=== PATIENT | female | born 2000 | race African-American/Black ===

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

== ENCOUNTER 2022-09-15 08:08 | Emergency (ER) | payer OTHER, SELFPAY ==
[2022-09-15 08:21] VITALS: BP 97/56; PULSE 120; RESP 16; TEMP 37.1; O2SAT 98
--- NOTE | 2022-09-15 08:35 | ED.URI ---
HPI - URI/Sore Throat General Chief Complaint: Upper Respiratory Infection Stated Complaint: Body Aches,Cough,Congestion Time Seen by Provider: 09/15/22 08:24 Source: patient Mode of arrival: ambulatory Limitations: no limitations History of Present Illness HPI Narrative: Patient presents today with a 5 day history of cough, body aches, headache, nasal congestion and postnasal drainage. Denies sore throat, fever, nausea or vomiting. 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 Denies any history of asthma, but states she does have some spurring environmental allergies. Related Data Home Medications Medication Instructions Recorded Confirmed norethindrone 1 mg-ethinyl 1 tablet PO DAILY 02/10/21 09/15/22 estradiol 10 mcg (24)-iron 10 mcg(2) tablet (Lo Loestrin Fe) Allergies Allergy/AdvReac Type Severity Reaction Status Date / Time No Known Allergies Allergy Unknown Verified 02/10/21 10:46 Review of Systems Review of Systems: CONSTITUTIONAL: Denies fever, chills, or sweats.+ body aches EYES: Denies visual changes, redness, or discharge. ENT: Denies rhinorrhea, sore throat, or otalgia.+ congestion, postnasal drip CARDIOVASCULAR: Denies chest pain, palpitations, or edema. RESPIRATORY: Denies dyspnea.+ cough GASTROINTESTINAL: Denies abdominal pain, nausea, vomiting, or diarrhea. GENITOURINARY: Denies dysuria or hematuria. SKIN: Denies rash, itching, or wounds. MUSCULOSKELETAL: Denies back pain, joint pain, or myalgia. NEUROLOGIC: Denies numbness, tingling, or weakness.+ headache PSYCH: Denies depression or anxiety. PMFSH Comments At time of signature, I have reviewed and agree with nursing past medical, surgical, social and family history unless otherwise noted. Please see nursing chart for further information. There is no relevant family history pertinent to the presenting complaint Exam Narrative: GENERAL: Mildly ill-appearing, well-nourished, and in no acute distress. HEAD: Normocephalic, atraumatic. EYES: EOMI. No redness or drainage. Conjunctivae normal. ENT: Mucous membranes pink and moist. Nares congested with rhinorrhea. TMs normal bilaterally. Throat normal. Uvula midline. NECK: Normal AROM. Supple. No lymphadenopathy. CHEST: No respiratory distress. Clear to auscultation. HEART: Regular rate and rhythm. No murmur appreciated. EXTREMITIES: Normal range of motion. No edema. SKIN: Warm, dry, no rash. Capillary refill normal. Normal skin turgor. NEURO: No focal deficits. Alert and oriented x3. Gait steady. PSYCH: Normal affect. No signs of depression or anxiety. Course Course Level of Care: Express Care Visit Vital Signs Vital signs: Vital Signs Temperature 98.7 F 09/15/22 08:21 Pulse Rate 120 H 09/15/22 08:21 Respiratory Rate 16 09/15/22 08:21 Blood Pressure 97/56 L 09/15/22 08:21 Pulse Oximetry 98 09/15/22 08:21 Oxygen Delivery Room Air 09/15/22 08:21 Temperature 98.7 F 09/15/22 08:21 Pulse Rate 120 H 09/15/22 08:21 Respiratory Rate 16 09/15/22 08:21 Blood Pressure 97/56 L 09/15/22 08:21 Pulse Oximetry 98 09/15/22 08:21 Oxygen Delivery Room Air 09/15/22 08:21 Reviewed MDM - URI/Sore Throat MDM Narrative Medical decision making narrative: Patient has declined offer to test for influenza. Symptoms consistent with viral URI. No prescription medications indicated at this time. Anticipatory guidance given. Patient is also requesting a work note. Differential Diagnosis Differential diagnosis: Likely upper respiratory infection, sinusitis, viral infection, bronchitis and influenza Critical Care Time Critical Care Time Critical Care Time: No Discharge Plan Discharge Clinical Impression: Upper respiratory infection Qualifiers: URI type: unspecified URI Qualified Code(s): J06.9 - Acute upper respir
== END 2022-09-15 08:44 | disposition home or self-care (01) ==
PROVIDERS: Emergency Provider Nurse Practitioner
DX: J06.9 Acute upper respiratory infection, unspecified (principal)
CPT/HCPCS: 99211; G0463

== ENCOUNTER 2023-09-12 10:07 | Emergency (ER) | payer OTHER, SELFPAY ==
[2023-09-12 10:36] VITALS: BP 113/67; PULSE 63; RESP 14; TEMP 36.2; O2SAT 100
--- NOTE | 2023-09-12 10:40 | ED.URI ---
HPI - URI/Sore Throat General Chief Complaint: Upper Respiratory Infection Stated Complaint: sorethroat Time Seen by Provider: 09/12/23 10:56 Source: patient and RN notes reviewed Mode of arrival: ambulatory Limitations: no limitations History of Present Illness HPI Narrative: 23-year-old female presents concern for 2 day history of nasal congestion, rhinorrhea, postnasal drainage, sore throat. She denies fever, body aches, chills, sweats. Reports he has been taking DayQuil. MD elicited complaint: sore throat and nasal congestion Related Data Home Medications Medication Instructions Recorded Confirmed norethindrone 1 mg-ethinyl tablet 09/12/23 09/12/23 estradiol 20 mcg (21)-iron 75 mg (7) tablet (Blisovi Fe 06/25 (28)) Allergies Allergy/AdvReac Type Severity Reaction Status Date / Time No Known Allergies Allergy Unknown Verified 09/12/23 10:45 Review of Systems Review of Systems: CONSTITUTIONAL: Denies malaise, chills, sweats, or fever. EYES: Denies visual changes, redness, or discharge. ENT: Reports rhinorrhea, congestion, and sore throat. CARDIOVASCULAR: Denies chest pain, palpitations, or edema. RESPIRATORY: Denies cough. Denies dyspnea. GASTROINTESTINAL: Denies abdominal pain, nausea, vomiting, diarrhea SKIN: Denies rash or itching. MUSCULOSKELETAL: Denies myalgia. NEUROLOGIC: Denies headache. All systems reviewed & are unremarkable except as noted in HPI and below PMFSH Comments At time of signature, agree with nursing past medical, surgical, social and family history. There is no relevant family history pertinent to the presenting complaint Exam Narrative: GENERAL: Well-appearing, well-nourished, and in no acute distress. HEAD: Normocephalic EYES: PERRLA, conjunctivae clear ENT: Nares clear, turbinates edematous and erythematous, clear discharge. Mucous membranes moist. TM pearly andrea with dull light reflex bilaterally; no tragal tenderness. Oropharynx not erythematous without lesions. Tonsils not enlarged and without exudate, no drooling, no hoarseness, no trismus, uvula midline. NECK: Supple. No lymphadenopathy CHEST: Clear to auscultation, breath sounds equal. No wheezing, rhonchi, rales, or stridor. No respiratory distress, speaks in full sentences. HEART: Regular rate and rhythm. No murmur heard. SKIN: Warm, dry, no rash. NEURO: Alert and oriented x3. PSYCH: Normal mood and affect Course Course Emergency Course: Patient is aware of diagnosis, understands and agrees to treatment plan. Anticipatory guidance given. Patient agrees to follow-up as directed and is aware of reasons to seek care at the emergency department. Portions of this record may have been created with voice recognition software Level of Care: Express Care Visit Vital Signs Vital signs: Vital Signs Temperature 97.1 F L 09/12/23 10:36 Pulse Rate 63 09/12/23 10:36 Respiratory Rate 14 09/12/23 10:36 Blood Pressure 113/67 09/12/23 10:36 Pulse Oximetry 100 09/12/23 10:36 Oxygen Delivery Room Air 09/12/23 10:36 Temperature 97.1 F L 09/12/23 10:36 Pulse Rate 63 09/12/23 10:36 Respiratory Rate 14 09/12/23 10:36 Blood Pressure 113/67 09/12/23 10:36 Pulse Oximetry 100 09/12/23 10:36 Oxygen Delivery Room Air 09/12/23 10:36 Reviewed. MDM - URI/Sore Throat MDM Narrative Medical decision making narrative: Differential diagnosis considered: Elkins virus, strep pharyngitis, allergic rhinitis, upper respiratory tract infection, sinusitis, rhinosinusitis, nasopharyngitis. viral pharyngitis, otitis media, otitis externa, pneumonia, bronchitis, viral cough syndrome, viral syndrome, and influenza. Exam findings show no acute concerns or changes; patient is non-toxic appearing and is in no distress. Patient is appropriate for outpatient treatment and follow-up. Lab Data Attestation: I reviewed the patient's lab results. Critical Care Time Critical Care Time Critical Care Time: No
== END 2023-09-12 11:06 | disposition home or self-care (01) ==
PROVIDERS: Emergency Provider Nurse Practitioner
DX: J06.9 Acute upper respiratory infection, unspecified (principal)
CPT/HCPCS: 87081; 87880; 99213; G0463

== ENCOUNTER 2023-12-23 08:44 | Emergency (ER) | payer OTHER, SELFPAY ==
--- NOTE | 2023-12-23 08:48 | ED.URI ---
HPI - URI/Sore Throat General Chief Complaint: Upper Respiratory Infection Stated Complaint: sorethroat Time Seen by Provider: 12/23/23 08:48 Source: patient Mode of arrival: ambulatory Limitations: no limitations History of Present Illness HPI Narrative: Chery is a 23-year-old female who presents with a 1 day history of sore throat and body aches. 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 She states she tested negative for COVID on Tuesday. She has been taking ibuprofen for the body aches with partial relief. She denies any fevers, chills, cough, congestion, otalgia, shortness of breath, or chest pain. MD elicited complaint: sore throat and other (body aches) Related Data Home Medications Medication Instructions Recorded Confirmed norethindrone 1 mg-ethinyl 1 tablet DAILY 09/12/23 12/23/23 estradiol 20 mcg (21)-iron 75 mg (7) tablet (Blisovi Fe 06/25 (28)) Allergies Allergy/AdvReac Type Severity Reaction Status Date / Time No Known Allergies Allergy Unknown Verified 09/12/23 10:45 Review of Systems Review of Systems: Pertinent positives per HPI. Patient denies any fever, chills, rash, visual changes, dizziness, cough, shortness of breath, chest pain, palpitations, nausea, vomiting, diarrhea, constipation, abdominal pain, or any urinary issues. PMFSH Comments At the time of my signature, I reviewed and agree with the nursing past medical, surgical, social, and family history. There is no relevant family history pertinent to the patient complaint. Exam Narrative: General: Well-developed, well nourished, in no apparent distress Head: Normocephalic, atraumatic Eyes: Pupils equally round, EOM intact, sclera and conjunctive clear, no discharge, lids normal Ears: TMs intact and clear, ear canals erythematous, no drainage, hearing normal. Nose: Nares patent, no discharge, left nare appeared congested/inflamed, no sinus tenderness. Mouth: Oral pharynx without lesions, masses, or exudates, good dentition, MMM. Neck: Supple, trachea midline Cardio: Regular rate and rhythm, s1 and s2 normal, no murmur appreciated. Resp: Clear to auscultation bilaterally, no rhonchi, rales, wheezing or rubs Course Course Emergency Course: Portions of this record may have been created with voice recognition software. Level of Care: Express Care Visit Vital Signs Vital signs: Vital signs reviewed MDM - URI/Sore Throat MDM Narrative Medical decision making narrative: At the time of visit patient is resting comfortably on the exam table. Patient appears to be nontoxic. Labs: Strep test was obtained and negative in the clinic today. COVID and influenza testing was also performed and negative in the clinic today. We will send strep for culture. Plan: I suspect patient has pharyngitis. Supportive measures were discussed with the patient and they voiced understanding discharge instructions and agrees to treatment plan. Return precautions reviewed Differential Diagnosis Differential diagnosis: Likely upper respiratory infection, otitis media, sinusitis, viral infection, influenza, pharyngitis and other (COVID) Discharge Plan Discharge Clinical Impression: Pharyngitis Patient Disposition: Home, Self-Care Condition: Stable Instructions: Antibiotic Form, Pharyngitis (ED) Additional Instructions: Strep test was negative in the clinic today. We will send for culture if this comes back positive we will contact you in place you on antibiotics at time COVID and influenza testing was negative in the clinic today. Increase fluids and stay well hydrated Tylenol/motrin for pain/fever Flonase and OTC antihistamines as directed Vicks vapor rub to open sinuses Sinus rinses for congestion Cepacol spray, cough drops, throat lozenges, warm tea with honey/lemon, gargle salt water to soothe throat BRAT diet for diarrhea Clear liquids x 24 hours then advance as tolerated
[2023-12-23 08:59] VITALS: BP 116/58; PULSE 110; RESP 18; TEMP 36.7; O2SAT 98
[2023-12-23 09:09] VITALS: BP 116/58; PULSE 110; RESP 18; TEMP 36.7; O2SAT 98
[2023-12-23 09:14] LABS: EDSTREPNEGPOS1 Presumptive Negative
[2023-12-23 09:44] LABS: EDINFLUASCREEN Negative; EDINFLUBSCREEN Negative
== END 2023-12-23 09:43 | disposition home or self-care (01) ==
PROVIDERS: Emergency Provider Nurse Practitioner Family
DX: J02.9 Acute pharyngitis, unspecified (principal); Z20.822 Contact with and (suspected) exposure to COVID-19
CPT/HCPCS: 87081; 87426; 87804; 87880; 99213; G0463

== ENCOUNTER 2024-03-04 04:55 | Emergency (ER) | payer OTHER, SELFPAY ==
[2024-03-04 05:00] VITALS: BP 117/78; PULSE 89; RESP 14; TEMP 36.2; O2SAT 100
--- NOTE | 2024-03-04 06:34 | PC.NURSE ---
Patient walked up to triage area and advised that she was leaving. Patient had a steady gait upon leaving ED.
== END 2024-03-04 06:56 | disposition left against medical advice (07) ==
DX: Z53.21 Procedure and treatment not carried out due to patient leaving prior to being seen by health care provider (principal)
CPT/HCPCS: 99199

== ENCOUNTER 2025-03-05 16:48 | Emergency (ER) | payer OTHER, SELFPAY ==
--- NOTE | ~2025-03-05 | US_ITS ---
EXAMINATION: US OB <=14 wk fetus w TV DATE: 03/05/2025 19:08 INDICATION: Abdominal cramping and vaginal bleeding TECHNIQUE: Real-time pelvic ultrasound utilizing both a transvaginal and transabdominal probe was performed. The interpreting radiologist was not present for the study. COMPARISON: None. FINDINGS: The uterus measures 9.6 x 4.7 x 4.8 cm. 4 mm anechoic nabothian cyst at the cervix. The endometrial complex is thickened measuring 2.0 cm in thickness. No evident intrauterine gestational sac. The right ovary measures 3.3 x 3.0 x 3.2 cm. 2.4 cm thick-walled centrally hypoechoic likely corpus luteum cyst in the right ovary. The left ovary measures 2.0 x 1.9 x 1.7 cm. Mass or flow identified at both ovaries on color Doppler. There is very small amount of anechoic free fluid at the bilateral adnexa. IMPRESSION: 1. Thickened endometrial complex measuring 2.0 cm in thickness with no evident intrauterine gestational sac for which differential would include early , failed or ectopic . Recommend follow-up with serial beta-hCG levels and repeat ultrasound as clinically indicated. Reviewed, dictated and finalized at location A. IMPRESSION: 1. Thickened endometrial complex measuring 2.0 cm in thickness with no evident intrauterine gestational sac for which differential would include early pregnan cy, failed or ectopic . Recommend follow-up with serial beta -hCG levels and repeat ultrasound as clinically indicated.
--- OUTSIDE RECORDS SUMMARY | 2025-03-05 16:51 | XMS_ITS | Clinical Summary ---
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 Gender Identity Not on file Sexual Orientation Not on file Last Filed Vital Signs Vital Sign Reading Time Taken Comments Blood Pressure 118/62 03/04/2024 2:35 PM CDT Pulse 78 03/04/2024 2:35 PM CDT Temperature 36.3 C (97.4 F) 03/04/2024 2:35 PM CDT Respiratory Rate 16 03/04/2024 2:35 PM CDT Oxygen Saturation 98% 03/04/2024 2:35 PM CDT Inhaled Oxygen Concentration - - Weight 68 kg (150 lb) 03/04/2024 7:12 AM CDT Height 167.6 cm (5' 6) 03/04/2024 7:12 AM CDT Body Mass Index 24.21 03/04/2024 7:12 AM CDT Plan of Treatment Health Maintenance Due Date Last Done Comments Cervical Cancer Screening Pap Smear (Age 21 to 29) Every 3 Years 2002 Cervical Cancer Screening 2002 Annual Physical 2005 HPV Vaccines (1 - 3-dose series) 2017 Meningococcal B Vaccine (1 of 2 - Standard) 2018 Hepatitis C 2020 DTaP, Tdap and Td Vaccines (7 - Td or Tdap) 01/16/2024 01/15/2014, 12/26/2007, 02/03/2004, Additional history exists COVID-19 Vaccine (2023- season) 2025 Hepatitis B Vaccines Completed 01/07/2003, 2002, 2002 Pneumococcal Vaccine: Pediatrics (0 to 5 Years) and At-Risk Patients (6 to 49 Years) Aged Out 02/03/2004, 2002 No longer eligibl e based on patient's age to complete this topic Meningococcal Vaccine Completed 04/11/2020, 014 RSV Immunizations Under 20 Months Aged Out No longer eligible based on patient's age to complete this topic Insurance Care Teams Rag Cutting Machine Tender Relationship Specialty Start Date End Date None, Provider, PCP - General UNKNOWN PHYSICIAN SPECIALTY 03/04/24
--- OUTSIDE RECORDS SUMMARY | 2025-03-05 16:51 | XMS_ITS | Data Portability ---
Author Organization [place] [facility], Main Office Address [address] [place] [address] Care Team Providers Care Talent Acquisition Lead Name Role Phone DARLINE JOSE Primary Care Provider DARLINE JOSE Referring Provider Assessment No assessment recorded. Plan of Treatment Reminders Order Date Submit Date Provider Last Modified By Organization Details Last Modified Time Details Appointments Follow Up 15 2024 04:30P M Katherine Luis, PMHNP Not available Not available Not available Lab None recorded. Referral psychiatr ist referral - Please call patient to schedule an appointme nt. Thank you. 2024 025 [facility], [address] [facility], [address], [place], [address], 12/31/2024 14:13:20 psychiatr ist referral - Requests ADD evaluatio n, no childhood dx or tx. [address], [address] [facility], [place], [address], 11/11/2022 16:44:05 Procedures None recorded. Surgeries None recorded. Imaging None recorded. Medication Orders None recorded. Patient TargetsNo targets recorded. Patient InstructionsNo instructions recorded. Reason for Referral Psychiatrist Referral for Po or concentration Requests ADD evaluation, no childhood dx or tx. Referring Physician: Francisco Nunn Family Medicine, Encounter Date: 10/06/2022 Psychiatrist Referral for Po or concentration Please call patient to schedule an appointment. Thank you. Referring Physician: Darline Jose Family Medicine, Encounter Date: 12/28/2024 Results Created Date Observation Date Name Description Value Unit Range Abnormal Flag Note LastModifiedBy Organization Detail LastModifiedTime 12/12/19 21 12/11/2020 PPD (lainey fied prote in deriv ative ), skin test TB negati ve Not Available [facility] [address] , [place], [address], 12/09/2020 14:42:12 Result Notes None recorded. Problems Name Problem SNOMED Code Status Onset Date Resolution Date Notes Provider Name and Address Organization Details Recorded Time Poor concentration 28722982 Active 2022 Francisco Nunn, FOOD MANAGEMENT AIDE [address] [facility], [address], [place], [address], [employer] 3 14:10:45 Chronic constipation 664620236 Active 2024 Darline Jose FOOD MANAGEMENT AIDE [address] [facility], [address], [place], [address], [employer] 5 15:06:02 Problem Notes None recorded. Procedures Surgical History Date Name Laterality Status Provider Name and Address Organization Details Recorded Time extraction of wisdom tooth completed Karen Carr RN [employer] 12/28/2024 14:45:05 Imaging Results None recorded. Procedure Notes None recorded. Medical Equipment None Reported. Allergies No known drug allergies Medications Name Sig Start Date Stop Date Status Note LastModified by Organization Details LastModified Time amoxicillin 500 mg capsule 10/06 completed Not Available Not Available Not Available metronidazo le 0.75 % (37.5 mg/5 gram) vaginal gel Insert 1 applicato rful every day by vaginal route at bedtime for 5 days. 10/06 completed Not Available Not Available Not Available Tubersol 5 tub. unit/0.1 mL intradermal injection solution Inject 0.1 mL every day by intraderm al route for 1 day. 12/28 completed Not Available Not Available Not Available amoxicillin 875 mg tablet Take 1 tablet every 12 hours by oral route for 10 days. 10/06 completed Not Available Not Available Not Available fluticasone propionate 50 mcg/actuati on nasal spray,suspe nsion 12/28 completed Not Available Not Available Not Available atomoxetine 18 mg capsule TAKE 1 CAPSULE BY MOUTH EVERY DAY active Not Available Not Available No t Available Lo Loestrin Fe 1 mg-10 mcg (24)/10 mcg (2) tablet TAKE 1 TABLET BY MOUTH EVERY DAY 10/06 completed Not Available Not Available Not Available Aurovela Fe 1-20 (28) 1 mg-20 mcg (21)/75 mg (7) tablet TAKE 1 TABLET BY MOUTH EVERY DAY active Not Available Not Available No t Available Vitals Date Recorded Body height Body mass index (BMI) Body mass index (BMI) [Percentile] Per age and sex Body weight Body temperature Heart rate Oxygen saturation Oxygen saturation in Arterial blood by Pulse oximetry Systolic And Diastolic Provider Name and Address Organization Details Last Updated DateTime 3 167.64 cm 23.2 kg/m2 65 % 24802.3 g 97.1 [degF] 85 /min 99 % 99 % 118/84 mm[Hg] Angella Robertson RN [facility] [employer] 3 13:58:20 Date Recorded Body mass index (BMI) Body height Oxygen saturation Oxygen saturation in Arterial blood by Pulse oximetry Heart rate Body temperature Body weight Systolic And Diastolic Provider Name and Address Organization Details Last Updated DateTime 1 22.4 kg/m2 167.64 cm 97 % 97 % 83 /min 98.2 [degF] 96561.3 4 g 126/88 mm[Hg] Not Available [employer] 3 21:49:07 Date Recorded Body weight Body mass index (BMI) Body height Body temperature Heart rate Respiratory rate Oxygen saturation Oxygen saturation in Arterial blood by Pulse oximetry Pain severity - 0-10 verbal numeric rating [Score] - Reported Systolic And Diastolic Provider Name and Address Organization Details Last Updated DateTime 5 60819.7 4 g 25.6 kg/m2 167.64 cm 97.3 [degF] 86 /min 20 /min 98 % 98 % 0 100/70 mm[Hg] Karen Carr RN [facility] [employer] 5 14:47:06 Date Recorded Body mass index (BMI) Body height Oxygen saturation Oxygen saturation in Arterial blood by Pulse oximetry Heart rate Body temperature Body weight Systolic And Diastolic Provider Name and Address Organization Details Last Updated DateTime 2 22.3 kg/m2 167.64 cm 98 % 98 % 76 /min 96.1 [degF] 78086.7 5 g 110/62 mm[Hg] Not Available [facility] 21:49:07 Social History Question Answer Notes LastModified by Organizat ion Details LastModified Time Tobacco Smoking Status Never Smoker Not Available [facility] 08/04/2022 21:48:51 What Is Your Level Of Caffeine Consumption? Heavy Information not available 12/28/2024 How Much Tobacco Do You Chew? None [id number] Information not available 08/04/2022 In The 14 Days Before Symptom Onset, Have You Had Close Contact With A Laboratory-confi rmed COVID-19 While That Case Was Ill? No [id number] Information not available 08/04/2022 In The 14 Days Before Symptom Onset, Have You Had Close Contact With A Person Who Is Under Investigation For COVID-19 While That Person Was Ill? No [id number] Information not available 08/04/2022 What Type Of Diet Are You Following? REGULAR [id number] Information not available 08/04/2022 Which Illicit Or Recreational Drugs Have You Used? No [id number] Information not available 08/04/2022 Have There Been Any Changes To Your Family Or Social Situation? Yes Moving And Engaged Information not available 12/28/2024 Are There Any Guns Present In Your Home? No [id number] Information not available 08/04/2022 Where Do You Live? [place] Information not available 12/28/2024 How Many Children Do You Have? 0 Information not available 12/28/2024 Do You Have Any Pets? Yes Information not available 12/28/2024 Do You Use Protection During Sex? No Information not available 12/28/2024 Do You Use Your Seat Belt Or Car Seat Routinely? Yes Information not available 10/06/2022 Are You Sexually Active? Yes Information not available 12/28/2024 Do You Have Smoke And Carbon Monoxide Detectors In Your Home? Yes Information not available 12/28/2024 Are You Passively Exposed To Smoke? Yes [id number] Information not available 08/04/2022 Are There Any Smokers In Your House? Yes Information not available 12/28/2024 Do You Participate In Social Media? Yes Information not available 10/06/2022 Do You Use Sunscreen Routinely? Yes [id number] Information not available 08/04/2022 Have You Recently Traveled Abroad? No Information not available 12/28/2024 Are You Currently In School? Yes Information not available 12/28/2024 How Many Years Have You Used E-cigarettes Or Vape? 2 Information not available 12/28/2024 Sex: Unknown Functional Status Question Answer Note LastModified by Organizat ion Details LastModified Time What is your level of alcohol consumption? Occasional [id number] Information not available 08/04/2022 Do you or have you ever used smokeless tobacco? 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 Current user of electronic cigarettes [id number] Information not available 08/04/2022 What is your exercise level? Occasional [id number] Information not available 08/04/2022 Mental Status Question Answer Note LastModified by Organization D etails LastModified Time Do you feel stressed (tense, restless, nervous, or anxious, or unable to sleep at night)? [id number] Information not available 10/06/2022 Family History Relationship Description Onset Age of this Age Resolved Age Notes LastModified by Organization Details LastModified Time Father Essential hypertension Not available 14:44:39 Mother Essential hypertension Not available 14:44:39 Medical History Condition Response CONSTIPATION Y Gynecological History Statement/Question Response Flow Moderate Frequency of Cycle (Q days) 28 Date of LMP 12/28/2024 Sexually Active? Y Menses Monthly Y Duration of Flow (days) 5 Current Control Method Age at Menarche 15 Obstetrics History GPAL:G 0 P 0 0 0 0 Type Value Living 0 Total 0 Past Encounters Encounter ID Performer Location Encounter Start Date Encounter Closed Date Diagnosis/Indication Diagnosis SNOMED-CT Code Diagnosis ICD10 Code Diagnosis IMO Codes Diagnosis Note [id number] Sherri Sanders MD [facility] Primary Care [address] [place] [address] 12/09/2020 00:00:00 12/09/2020 17:31:59 [id number] NOE Cabrera [facility] Primary Care [address] [place] [address] 03/26/2022 00:00:00 03/26/2022 08:42:48 [id number] Sherri Sanders MD [facility] Care [address] [place] [address] 10/06/2022 13:52:40 10/06/2022 14:22:40 Adult health examination 295112500 Z00.00 Z13.29 Z13.220 Z13.89 Z13.1 Z00.01 Adult Health Exam--Plan for routine labs at 23yo.--Josr mogram at 42yo--Wood n screening at 47yo--Bone Density at 65yo--PAP/ WWE-recomm ended at 23yo.--Tda p recommende d q 10 years-up to date--Flu recommende d yearly---C OVID-19 recommende d--Encoura ged yearly dental, vision, hearing screenings Poor concentration 52909 005 R41.840 New problemPt has no known dx or tx history for ADD/ADHDWi ll refer to psychiatry for formal evaluation /dx. [id number] Humza Noel MD [facility] Family Practice [address] [address] 12/28/2024 14:23:27 01/01/2025 14:02:24 Physical examination 5157532 Z00.00 [id number] [facility] maint[facility]anc e reviewedDi scussed diet and exercisePa tient questions answered Poor concentration 75438 005 R41.840 Believes she may have ADHD, would like assessment Chronic constipation 236 602169 K59.09 129040 Elin samples given in office 145 mg [id number] Katherine Orozcodavid, H[facility] [address] [facility] [address] [place] [address] 02/14/2025 16:06:36 02/14/2025 17:21:24 Health Concerns Section Related Observation LastModified by Organization Detai ls LastModified Time None Recorded Concern Status LastModified by Organization Details LastModified Time None Recorded Advance Directives Directive None Recorded Payers Insurance Date Sequence Insurance Name Policy Number Policy Sanchez Covered Member ID Sanchez Member ID Guarantor Name 02/11/2025 1 [facility] [id number] Chery Jackman [id number] Chery Jackman 01/22/2025 1 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 Pt in office for annual well visit/physical.2. Pt states she believes she might have ADD/ADHD. States she always struggled to focus, especially if it was something that she wasn't interested in. States she gets overwhelmed easily. Reports one of her teachers in high school thought she did. All of her co-workers also think she might have ADD. CANDELARIO Tavera [address] [facility], [facility] [address], [place], [address], [employer] 10/06/2022 14:20:18 12/28/2024 text/html Chery Jackman 24 year old female patient here today to establish care. She previously saw Francisco Nunn. She has concerns with possible ADHD. Would like to assessment. Does take oral control Flu shot: declinesCOVID vaccines: declinesTdap: 12/28/24PAP: 2024Mammogram and colonoscopy not indicated CANDELARIO Rivera [address] [facility], [facility] [address], [place], [address], [employer] 12/28/2024 15:08:24 OBGyn Episode No OBEpisode recorded.
[2025-03-05 17:00] VITALS: BP 139/74; PULSE 76; RESP 16; TEMP 37; O2SAT 100
--- NOTE | 2025-03-05 17:40 | ED_ITS ---
HPI - General Chief complaint: Vaginal Bleeding <Rachelle Fletcher APRN - Last Filed: 03/05/25 19:14> Stated complaint: poss miscarriage, est 5-6 wks preg <Rachelle Fletcher APRN - Last Filed: 03/05/25 19:14> Time Seen by Provider: 03/05/25 17:41 <Rachelle Fletcher APRN - Last Filed: 03/05/25 19:14> Focused HPI: Patient is a 24-year-old female presents to the ER with concerns of vaginal bleeding that started around 3:00 p.m. this afternoon. Patient reports she is 5-6 weeks . She denies passing any clots. Patient reports her last menstrual period was January 28, 2025. She endorses increased frequency of urination, but denies burning and urgency. Patient denies any recent fevers, acute back pain, or previous pregnancies. She endorses lower abdominal cramping. Patient endorses a history of ADHD but denies any other medical history relevant to this ER visit. GENERAL: Well-appearing, well-nourished, and in no acute distress. HEAD: Normocephalic, atraumatic. CHEST: Clear to auscultation. ?No respiratory distress. HEART: Regular rate and rhythm.? NEURO: ?Alert and oriented x3. Patient screened in triage and initial orders placed.? ?Additional care and disposition to be based upon?diagnostic testing and treatment. <Rachelle Fletcher APRN - Last Filed: 03/05/25 19:14> History of Present Illness HPI Narrative: Agree with HPI <Jorje Pompa MD - Last Filed: 03/05/25 22:35> Related Data Home medications: Home Medications ?Medication ?Instructions ?Recorded ?Confirmed ?Last Taken ?Type norethindrone 1 mg-ethinyl 1 tablet DAILY 09/12/23 Unknown History estradiol 20 mcg (21)-iron 75 mg (7) tablet ([place] Fe 06/25 (28)) <Rachelle Fletcher APRN - Last Filed: 03/05/25 19:14> Allergies/Adverse reactions: Allergies Allergy/AdvReac Type Severity Reaction Status Date / Time No Known Allergies Allergy Unknown Verified 03/05/25 17:00 <Rachelle Fletcher APRN - Last Filed: 03/05/25 19:14> Review of Systems 2 Review of Systems: Gen.: Denies fevers or chills Eyes: Denies eye pain or visual change ENT: Denies congestion Respiratory: Denies shortness of breath or cough CV: Denies chest pain or palpitations GI: Denies abdominal pain nausea, emesis or diarrhea denies burning, urgency, frequency or hematuria Musculoskeletal: Denies back pain or muscle pain Neuro: Denies numbness, tingling, weakness or focal weakness Skin: Denies rash Except as documented, all other systems reviewed and negative <Jorje Pompa MD - Last Filed: 03/05/25 22:35> Exam 2 Narrative: APPEARANCE: No acute distress, nontoxic, resting in bed EYES: EOMI HEENT: Normocephalic, atraumatic, OMM RESPIRATORY: No respiratory distress Clear to auscultation bilaterally with no rhonchi wheezing or rales. CARDIOVASCULAR: Regular rate and rhythm without murmurs rubs or gallops. ABDOMINAL: Soft, nontender, nondistended, no rebound or guarding MUSCULOSKELETAl: Moves all extremities. No clubbing, cyanosis or edema. NEURO: Awake and alert. Following commands, speech normal, no focal deficits SKIN:: Warm, dry. No rashes lesions or abrasions PSYCHIATRIC: Normal affect/mood, <Jorje Pompa MD - Last Filed: 03/05/25 22:35> Course Vital Signs Vital signs: Vital Signs Temperature 98.6 F 03/05/25 17:00 Pulse Rate 76 03/05/25 17:00 Respiratory Rate 16 03/05/25 17:00 Blood Pressure 139/74 03/05/25 17:00 Pulse Oximetry 100 03/05/25 17:00 Oxygen Delivery Room Air 03/05/25 17:00 Temperature 98.6 F 03/05/25 17:00 Pulse Rate 70 03/05/25 20:37 Respiratory Rate 16 03/05/25 20:37 Blood Pressure 131/66 03/05/25 20:37 Pulse Oximetry 100 03/05/25 20:37 Oxygen Delivery Room Air 03/05/25 17:00 <Rachelle Fletcher APRN - Last Filed: 03/05/25 19:14> Vital Signs Temperature 98.6 F 03/05/25 17:00 Pulse Rate 76 03/05/25 17:00 Respiratory Rate 16 03/05/25 17:00 Blood Pressure 139/74 03/05/25 17:00 Pulse Oximetry 100 03/05/25 17:00 Oxygen Delivery Room Air 03/05/25 17:00 Temperature 98.6 F 03/05/25 17:00 Pulse Rate 70 03/05/25 20:37 Respiratory Rate 16 03/05/25 20:37 Blood Pressure 131/66 03/05/25 20:37 Pulse Oximetry 100 03/05/25 20:37 Oxygen Delivery Room Air 03/05/25 17:00 <Jorje Pompa MD - Last Filed: 03/05/25 22:35> MDM - OB/Uterine Contractions MDM Narrative Medical decision making narrative: 24-year-old female approximately 4 weeks by menstrual period presenting for vaginal bleeding. On initial evaluation patient was in no acute distress, afebrile, hemodynamically stable. Abdomen was soft and nontender. She had mild anemia with hemoglobin 11.4. Mild leukocytosis at 11.4. CMP without significant abnormalities. Beta-hCG elevated 2687. UA consistent with bacteriuria. Pelvic ultrasound was obtained which showed no evidence of intrauterine gestational sac which could consistent early , ectopic , failed . Discussed this with the patient and partner at bedside, advised them to follow up the patient's sub prior tomorrow to have HCG redrawn on patient and family were agreeable to this plan. Given strict return precautions. < Jorje Pompa MD - Last Filed: 03/05/25 22:35> Differential Diagnosis Differential diagnosis: Likely other (threatened miscarriage, ectopic ,) <Jorje Pompa MD - Last Filed: 03/05/25 22:35> Medical Records Attestation: I reviewed the patient's medical records. <Jorje Pompa MD - Last Filed: 03/05/25 22:35> Lab Data Attestation: I reviewed the patient's lab results. <Jorje Pompa MD - Last Filed: 03/05/25 22:35> Result diagrams: 03/05/25 17:40 03/05/25 17:40 <Rachelle L. Chance, SUPPORTIVE EMPLOYMENT CASE MANAGER - Last Filed: 03/05/25 19:14> Labs: Lab Results 03/05/25 03/05/25 Range/Units 17:40 19:03 WBC 11.4 H (4.5-10.0) K/mm3 RBC 4.02 L (4.2-5.4) M/mm3 Hgb 11.4 L (12.0-15.0) g/dL Hct 34.9 L (37.0-47.0) % MCV 86.8 (80-100) fl MCH 28.4 (26-34) pg MCHC 32.7 (32-36) g/dl RDW 12.9 (11.5-14.5) % Plt Count 251 (150-375) k/mm3 MPV 10.8 H (7.4-10.4) fl Immature Gran % (Auto) 0.3 (0-0.5) % Neut % (Auto) 76.7 H (45.5-73.1) % Lymph % (Auto) 17.1 L (18.3-44.2) % Rains % (Auto) 5.3 (2.6-8.5) % Eos % (Auto) 0.2 (0-4.4) % Baso % (Auto) 0.4 (0.2-1.2) % Lymph # (Auto) 1.94 (0.9-3.2) K/mm3 Rains # (Auto) 0.6 (0.1-0.6) K/mm3 Eos # (Auto) 0.0 (0-0.3) K/mm3 Baso # (Auto) 0.1 (0.0-0.1) K/mm3 Abs Immat Gran (auto) 0.03 (0.00-0.031) K/mm3 Absolute Neuts (auto) 8.7 H (1.3-6.7) K/mm3 Absolute Nucleated RBC 0.000 (0.0-0.012) K/mm3 Nucleated RBC % 0.0 (0.0-0.2) % PT 14.0 (11.1-14.7) Seconds INR 1.1 APTT 27.5 (22.3-36.8) Seconds Sodium 135 L (137-145) mmol/L Potassium 3.6 (3.4-5.0) mmol/L Chloride 103 (98-107) mmol/L Carbon Dioxide 22 (22-30) mmol/L Anion Gap 10 (4-12) mmol/L BUN 11 (7-17) mg/dL Creatinine 0.80 (0.7-1.0) mg/dL Estim Creat Clear Calc 90 ml/min Estimated GFR > 60 (59 - ) Glucose 84 (65-110) mg/dL Calcium 8.8 (8.4-10.2) mg/dL Total Bilirubin 0.9 (0.2-1.3) mg/dL AST 21 (14-36) U/L ALT 15 (6-35) U/L Alkaline Phosphatase 56 (38-126) U/L Total Protein 7.9 (6.3-8.2) g/dL Albumin 4.7 (3.5-5.1) g/dL Beta HCG, Quant 2687.80 mIU/ML Urine Color Yellow (Yellow) Urine Appearance Cloudy H (Clear) Urine pH 6.0 (5.0-9.0) Ur Specific [facility] 1.015 (1.001-1.035) Urine Protein Negative (Negative) mg/dL Urine Glucose (UA) Negative (Negative) mg/dL Urine Ketones 2+ H (Negative) mg/dL Ur Blood (Man) 3+ H (Negative) Urine Nitrate Negative (Negative) Urine Bilirubin Negative (Negative) Urine Urobilinogen 0.2 (<2.0) mg/dL Leukocyte Esterase Rfl 1+ H (Negative) KELSEY/UL Urine RBC 3-5 H (0-2) /hpf Urine WBC 6-10 H (0-3) /hpf Ur Squamous Epith Cells Few (Few) /hpf Urine Bacteria Rare /hpf Urine Casts 0-2 Blood Type A Positive Antibody Screen Negative Screen Not Reportable Baby's Blood Type Not Reportable Baby's ZULEIMA Not Reportable Doses of RhIg Required 0 <Rachelle Fletcher, SUPPORTIVE EMPLOYMENT CASE MANAGER - Last Filed: 03/05/25 19:14> Lab Results 03/05/25 03/05/25 Range/Units 17:40 19:03 WBC 11.4 H (4.5-10.0) K/mm3 RBC 4.02 L (4.2-5.4) M/mm3 Hgb 11.4 L (12.0-15.0) g/dL Hct 34.9 L (37.0-47.0) % MCV 86.8 (80-100) fl MCH 28.4 (26-34) pg MCHC 32.7 (32-36) g/dl RDW 12.9 (11.5-14.5) % Plt Count 251 (150-375) k/mm3 MPV 10.8 H (7.4-10.4) fl Immature Gran % (Auto) 0.3 (0-0.5) % Neut % (Auto) 76.7 H (45.5-73.1) % Lymph % (Auto) 17.1 L (18.3-44.2) % Rains % (Auto) 5.3 (2.6-8.5) % Eos % (Auto) 0.2 (0-4.4) % Baso % (Auto) 0.4 (0.2-1.2) % Lymph # (Auto) 1.94 (0.9-3.2) K/mm3 Rains # (Auto) 0.6 (0.1-0.6) K/mm3 Eos # (Auto) 0.0 (0-0.3) K/mm3 Baso # (Auto) 0.1 (0.0-0.1) K/mm3 Abs Immat Gran (auto) 0.03 (0.00-0.031) K/mm3 Absolute Neuts (auto) 8.7 H (1.3-6.7) K/mm3 Absolute Nucleated RBC 0.000 (0.0-0.012) K/mm3 Nucleated RBC % 0.0 (0.0-0.2) % PT 14.0 (11.1-14.7) Seconds INR 1.1 APTT 27.5 (22.3-36.8) Seconds Sodium 135 L (137-145) mmol/L Potassium 3.6 (3.4-5.0) mmol/L Chloride 103 (98-107) mmol/L Carbon Dioxide 22 (22-30) mmol/L Anion Gap 10 (4-12) mmol/L BUN 11 (7-17) mg/dL Creatinine 0.80 (0.7-1.0) mg/dL Estim Creat Clear Calc 90 ml/min Estimated GFR > 60 (59 - ) Glucose 84 (65-110) mg/dL Calcium 8.8 (8.4-10.2) mg/dL Total Bilirubin 0.9 (0.2-1.3) mg/dL AST 21 (14-36) U/L ALT 15 (6-35) U/L Alkaline Phosphatase 56 (38-126) U/L Total Protein 7.9 (6.3-8.2) g/dL Albumin 4.7 (3.5-5.1) g/dL Beta HCG, Quant 2687.80 mIU/ML Urine Color Yellow (Yellow) Urine Appearance Cloudy H (Clear) Urine pH 6.0 (5.0-9.0) Ur Specific [facility] 1.015 (1.001-1.035) Urine Protein Negative (Negative) mg/dL Urine Glucose (UA) Negative (Negative) mg/dL Urine Ketones 2+ H (Negative) mg/dL Ur Blood (Man) 3+ H (Negative) Urine Nitrate Negative (Negative) Urine Bilirubin Negative (Negative) Urine Urobilinogen 0.2 (<2.0) mg/dL Leukocyte Esterase Rfl 1+ H (Negative) KELSEY/UL Urine RBC 3-5 H (0-2) /hpf Urine WBC 6-10 H (0-3) /hpf Ur Squamous Epith Cells Few (Few) /hpf Urine Bacteria Rare /hpf Urine Casts 0-2 Blood Type A Positive Antibody Screen Negative Screen Not Reportable Baby's Blood Type Not Reportable Baby's ZULEIMA Not Reportable Doses of RhIg Required 0 <Jorje Pompa MD - Last Filed: 03/05/25 22:35> Imaging Data Attestation: I personally reviewed and interpreted this imaging study as follows: < Jorje Pompa MD - Last Filed: 03/05/25 22:35> Radiologist's impression: Impressions Obstetrics Ultrasound 03/05/25 19:31 IMPRESSION: 1. Thickened endometrial complex measuring 2.0 cm in thickness with no evident intrauterine gestational sac for which differential would include early , failed or ectopic . Recommend follow-up with serial beta-hCG levels and repeat ultrasound as clinically indicated. <Jorje Pompa MD - Last Filed: 03/05/25 22:35> Discharge Plan Discharge Clinical Impression: Vaginal bleeding during , Asymptomatic bacteriuria <Rachelle Fletcher APRN - Last Filed: 03/05/25 19:14> Patient Disposition: Home <Rachelle Fletcher APRN - Last Filed: 03/05/25 19:14> Condition: Stable <Rachelle Fletcher APRN - Last Filed: 03/05/25 19:14> Instructions: Antibiotic Form, Threatened Miscarriage (ED), (ED) <Rachelle Fletcher APRN - Last Filed: 03/05/25 19:14> Additional Instructions: Your beta HCG was 2600. Ultrasound showed no evidence of a in her uterus, however, may be too early to visualize it. Call your sub prior tomorrow to schedule a repeat hCG level on . Return to the ED for any new or worsening symptoms. <Rachelle Fletcher APRN - Last Filed: 03/05/25 19:14> Patient Language: Nicaraguan <Rachelle Fletcher APRN - Last Filed: 03/05/25 19:14> Prescriptions: No Action norethindrone-e.estradiol-iron [[place] Fe 06/25 (28)] 1 mg-20 mcg (21)/75 mg (7) tablet 1 tablet DAILY <Rachelle Fletcher APRN - Last Filed: 03/05/25 19:14> Follow-up/Referrals: Edin Car MD [Physician, [employer] AND SERVICE DIRECTOR] PHYSICIAN NOT ON STAFF,NONSTAFF [Non-Staff] <Rachelle Fletcher APRN - Last Filed: 03/05/25 19:14>
[2025-03-05 17:47] LABS: Hematocrit 34.9 % (37.0-47.0); Hemoglobin 11.4 g/dL (12.0-15.0); Immature Granulocyte Percent A 0.3 % (0-0.5); Lymphocytes Absolute Auto 1.94 K/mm3 (0.9-3.2); Mean Corpuscular HGB Conc 32.7 g/dl (32-36); Mean Corpuscular Hemoglobin 28.4 pg (26-34); Mean Corpuscular Volume 86.8 fl (80-100); Nucleated Red Blood Cells Absolute Auto 0.000 K/mm3 (0.0-0.012); Nucleated Red Blood Cells Perc 0.0 % (0.0-0.2); Platelet Count Result 251 k/mm3 (150-375); Red Blood Count 4.02 M/mm3 (4.2-5.4); White Blood Count 11.4 K/mm3 (4.5-10.0)
[2025-03-05 17:58] LABS: Alanine Aminotransferase 15 U/L (6-35); Albumin Level 4.7 g/dL (3.5-5.1); Alkaline Phosphatase 56 U/L (38-126); Anion Gap 10 mmol/L (4-12); Aspartate Amino Transferase 21 U/L (14-36); Bilirubin,Total 0.9 mg/dL (0.2-1.3); Blood Urea Nitrogen 11 mg/dL (7-17); Calcium 8.8 mg/dL (8.4-10.2); Carbon Dioxide 22 mmol/L (22-30); Chloride 103 mmol/L (98-107); Estimated CRCL calculation 90 ml/min; Estimated Glomerular Filt Rate > 60; Glucose 84 mg/dL (65-110); Potassium 3.6 mmol/L (3.4-5.0); Sodium 135 mmol/L (137-145); Total Protein 7.9 g/dL (6.3-8.2)
[2025-03-05 17:59] LABS: INR 1.1; Prothrombin Time 14.0 Seconds (11.1-14.7)
[2025-03-05 18:00] LABS: Partial Thromboplastin Time 27.5 Seconds (22.3-36.8)
[2025-03-05 18:14] LABS: Beta HCG Quantitative 2687.80 mIU/ML
[2025-03-05 19:16] LABS: Add Urine Microscopic? YES; Appearance Urine Cloudy (Clear); Glucose Urine UA Negative (Negative); Leukocyte Esterase Ur 1+ LEU/UL (Negative); Nitrate Urine Negative (Negative); Non Pathogenic Casts 0-2; Specific Grav Ur 1.015 (1.001-1.035)
[2025-03-05 20:37] VITALS: BP 131/66; PULSE 70; RESP 16; O2SAT 100
== END 2025-03-05 21:00 | disposition home or self-care (01) ==
PROVIDERS: Registered Nurse; Emergency Provider Student in an Organized Health Care Education/Training Program
DX: O20.9 Hemorrhage in early pregnancy, unspecified (principal); O26.891 Other specified pregnancy related conditions, first trimester; R82.71 Bacteriuria; Z3A.01 Less than 8 weeks gestation of pregnancy
CPT/HCPCS: 36415; 76801; 76817; 80053; 81001; 84702; 85025; 85461; 85610; 85730; 86850; 86900; 86901; 87086; 99284